=== PATIENT | female | born 1990 | race Caucasian/White ===

== ENCOUNTER 2023-07-06 11:40 | Emergency (ER) | payer BC ==
[2023-07-06] MEDS: Lidocaine/Epineph/Tetracaine 3 ML Syringe TOP STA (12:34)
[2023-07-06] MEDS: Lidocaine 1% 5 ML VIAL INJECT STA (12:34)
== END 2023-07-06 14:09 | disposition home or self-care (01) ==
LOC: MW.ED 11:40
DX: N76.4 Abscess of vulva (principal); E03.9 Hypothyroidism, unspecified; Z79.899 Other long term (current) drug therapy
CPT/HCPCS: 56405; 99283; A9270; 10060; J3490

== ENCOUNTER 2023-12-06 20:44 | Emergency (ER) | payer BC ==
[2023-12-06] MEDS ORDERED: Sodium Chloride 0.9% 10 ML Syringe FLUSH PRN (21:01)
[2023-12-06] MEDS ORDERED: Sodium Chloride 0.9% 2.5 ML Syringe FLUSH PRN (21:01)
[2023-12-06] MEDS: amLODIPine 5 MG Tab PO ONE ×2 (21:29→21:48)
[2023-12-06 21:39] LABS: BASOPHILS ABSOLUTE AUTO 0.03 K/uL (0.00-0.20); BASOPHILS PERCENT AUTO 0.3 % (0.0-1.0); EOSINOPHILS ABSOLUTE AUTO 0.18 K/uL (0.00-0.45); EOSINOPHILS PERCENT AUTO 1.8 % (0.0-6.0); HEMATOCRIT 35.1 % (37.0-47.0); HEMOGLOBIN 11.5 g/dL (12.0-16.0); IMMATURE GRAN ABSOLUTE AUTO 0.03 K/uL (0.00-0.05); IMMATURE GRAN PERCENT AUTO 0.3 % (0.0-0.4); LYMPHOCYTES ABSOLUTE AUTO 3.06 K/uL (1.00-4.80); LYMPHOCYTES PERCENT AUTO 30.4 % (24.0-44.0); MEAN CORPUSCULAR HEMOGLOBIN 27.1 pg (28.0-32.0); MEAN CORPUSCULAR HGB CONC 32.8 g/dL (32.0-36.0); MEAN CORPUSCULAR VOLUME 82.8 fL (83.0-99.0); MEAN PLATELET VOLUME 10.2 fL (9.4-12.3); MONOCYTES ABSOLUTE AUTO 0.61 K/uL (0.00-0.80); MONOCYTES PERCENT AUTO 6.1 % (0.0-8.0); NEUTROPHILS ABSOLUTE AUTO 6.16 K/uL (1.80-7.70); NEUTROPHILS PERCENT AUTO 61.1 % (41.0-71.0); PLATELET COUNT,PLT 286 K/uL (150-400); RED BLOOD CELL COUNT 4.24 M/uL (4.10-5.30); WHITE BLOOD CELL COUNT,WBC 10.07 K/uL (3.9-11.3)
[2023-12-06] MEDS: Sodium Chloride 0.9% 1,000 ML IV STA (21:42)
[2023-12-06 22:04] LABS: A/G RATIO 0.9 (0.9-1.6); ALBUMIN 3.5 g/dL (3.4-5.0); BILIRUBIN TOTAL 0.4 mg/dL (0.2-1.0); CALCIUM 9.3 mg/dL (8.5-10.1); EST CRCL DRUG DOSING (CG) 63.29 mL/min; PROTEIN TOTAL,TP 7.5 g/dL (6.4-8.2)
== END 2023-12-06 22:22 | disposition home or self-care (01) ==
LOC: MW.ED 20:44
DX: I10 Essential (primary) hypertension (principal); Z79.890 Hormone replacement therapy; Z75.8 Other problems related to medical facilities and other health care
CPT/HCPCS: 36415; 80053; 85025; 99283; A9270

== ENCOUNTER 2024-10-14 11:15 | Emergency (ER) | payer BC ==
[2024-10-14] MEDS: Lidocaine/Epineph/Tetracaine 3 ML Syringe TOP ONE (11:49)
[2024-10-14] MEDS: Lidocaine 1% 5 ML VIAL INJECT ONE (11:49)
== END 2024-10-14 12:46 | disposition home or self-care (01) ==
LOC: MW.ED 11:15
DX: N76.4 Abscess of vulva (principal); I10 Essential (primary) hypertension; E66.9 Obesity, unspecified; Z75.3 Unavailability and inaccessibility of health-care facilities; Z79.899 Other long term (current) drug therapy; Z79.890 Hormone replacement therapy; Z79.02 Long term (current) use of antithrombotics/antiplatelets; Z86.16 Personal history of COVID-19; Z68.43 Body mass index [BMI] 50.0-59.9, adult
CPT/HCPCS: 56405; 99282; A9270; J2003